=== PATIENT | female | born 1945 | race Caucasian/White ===

== ENCOUNTER → 2016-08-26 | Outpatient (REF) | payer MEDICARE ==
[2016-08-26 10:18] LABS: BASOPHILS % (AUTO) 2 % (0-2); EOSINOPHILS # (AUTO) 0.2 10^3uL; EOSINOPHILS % (AUTO) 2 % (0-4); MEAN CORPUSCULAR HEMOGLOBIN 28.1 PG (26.0-34.0); MEAN CORPUSCULAR HGB CONC 32.3 g/dL (31.0-37.0); MEAN CORPUSCULAR VOLUME 87 FL (80-100); MONOCYTES # (AUTO) 0.8 X10^3; MONOCYTES % (AUTO) 9 % (3-11); NEUTROPHILS # (AUTO) 4.1 X10^3; NEUTROPHILS % (AUTO) 51 % (51-67); PLATELET COUNT 65 10^3uL (150-450)
== END ==
LOC: LAB 10:05
PROVIDERS: ATTEND Internal Medicine
DX: Z51.81 Encounter for therapeutic drug level monitoring (principal); Z79.01 Long term (current) use of anticoagulants; E11.8 Type 2 diabetes mellitus with unspecified complications
CPT/HCPCS: 80048; 83036; 85025; 85610

== ENCOUNTER → 2016-09-09 | Outpatient (REF) | payer MEDICARE | LOC: LAB 09:48 | PROVIDERS: ATTEND Internal Medicine | DX: Z51.81 Encounter for therapeutic drug level monitoring (principal); Z79.01 Long term (current) use of anticoagulants | CPT/HCPCS: 85610 ==

== ENCOUNTER → 2016-09-16 | Outpatient (REF) | payer MEDICARE | LOC: LAB 09:48 | PROVIDERS: ATTEND Internal Medicine | DX: Z51.81 Encounter for therapeutic drug level monitoring (principal); Z79.01 Long term (current) use of anticoagulants | CPT/HCPCS: 85610 ==

== ENCOUNTER → 2016-09-23 | Outpatient (REF) | payer MEDICARE | LOC: LAB 10:52 | PROVIDERS: ATTEND Internal Medicine | DX: Z51.81 Encounter for therapeutic drug level monitoring (principal); Z79.01 Long term (current) use of anticoagulants | CPT/HCPCS: 85610 ==

== ENCOUNTER → 2016-09-30 | Outpatient (REF) | payer MEDICARE | LOC: LAB 10:35 | PROVIDERS: ATTEND Internal Medicine | DX: Z51.81 Encounter for therapeutic drug level monitoring (principal); Z79.01 Long term (current) use of anticoagulants | CPT/HCPCS: 85610 ==

== ENCOUNTER → 2016-10-29 | Outpatient (REF) | payer MEDICARE ==
[~2016-10-29] MED LIST: AC325T PO; ALPR0.25 PO; ATEN-154 PO; ATEN-155 PO; ATEN25PO PO; ATN25T PO; ATOR10TA PO; AZIT250T5 PO; CEPH-507 PO; CHOL100048 PO; COLL30OI TOP; CPR500T PO; DULO60CA58 PO; DULO60CA7; ENOX150D4 SQ; FLDR.1T PO; FLUT15.88 NS; FOLI0.4T2 PO; GBPN600T PO; HUM100IN2 SC; HUM100VI SQ; HUM100VI12 SC; HUM100VI4 SQ; HYDR-3811 PO; HYDR-3881 PO; HYDR2TAB14 PO; IBP200T PO; IBUP200C PO; INSU100I23 SQ; INSU100V19 SQ; INSU100V2 SC; INSU100V2 SQ; INSU100V31 SQ; INSU100V6 SC; INSU100V8 SC; LEVO500T80 PO; LOPE2CAP29 PO; LOSA100T3 PO; LOSA25TA2 PO; LOSA50TA2 PO; LSRT50T PO; METF500T4 PO; METR500T PO; METR500T17 PO; MINE50OI TP; MIRALAX 17 GM P17 GM PO; NITR100C3 PO; NPH SQ; NPH,100I SQ; NPH,100V SC; NPH,100V SQ; ONDA4TAB11 PO; OXYB15TA PO; OXYC1TAB87 PO; POLY17PO6 PO; PRD10T PO; PRD1T PO; PRED1TAB PO; PRED5TAB PO; PSYL1PAC10 PO; SMV20T PO; SPIR1POW3 PO; SPIR25TA PO; SYRI-259 MC; TESTSTRIPS MC; TRAM-25 PO; WALKER; WARF5TAB PO; WARF7.5T PO; WRF2T PO; WRF5T PO; [UNRECOGNIZED DRUG - CODE] SC; [UNRECOGNIZED DRUG - CODE] SQ; [UNRECOGNIZED DRUG - SUPPLY]
[2016-10-29 10:06] LABS: BASOPHILS % (AUTO) 2 % (0-2); EOSINOPHILS # (AUTO) 0.3 10^3uL; EOSINOPHILS % (AUTO) 3 % (0-4); LYMPHOCYTES # (AUTO) 2.9 X10^3; MEAN CORPUSCULAR HEMOGLOBIN 27.8 PG (26.0-34.0); MEAN CORPUSCULAR VOLUME 89 FL (80-100); MEAN PLATELET VOLUME 11.8 FL (6.0-9.5); MONOCYTES # (AUTO) 0.8 X10^3; MONOCYTES % (AUTO) 11 % (3-11); NEUTROPHILS # (AUTO) 3.6 X10^3; NEUTROPHILS % (AUTO) 46 % (51-67); PLATELET COUNT 146 10^3uL (150-450); WHITE BLOOD COUNT 7.85 10^3uL (4.0-11.0)
[2016-10-29 10:17] LABS: ALBUMIN 3.1 g/dL (3.4-5.0); ANION GAP 13.5 MEQ/L (3-15); CALCULATED IONIZED CALCIUM 4.2 mg/dL (3.8-4.6); TOTAL PROTEIN 6.3 g/dL (6.4-8.5)
[2016-10-29 10:40] LABS: MEAN CORPUSCULAR HGB CONC 31.2 g/dL (31.0-37.0)
[2016-10-29 10:49] LABS: ERYTHROCYTE SEDIMENTATION RT* 53 mm/hr (0-23)
== END ==
LOC: LAB 09:55
PROVIDERS: ATTEND Internal Medicine
DX: Z51.81 Encounter for therapeutic drug level monitoring (principal); Z79.01 Long term (current) use of anticoagulants; E11.9 Type 2 diabetes mellitus without complications; I50.42 Chronic combined systolic (congestive) and diastolic (congestive) heart failure; M06.831 Other specified rheumatoid arthritis, right wrist
CPT/HCPCS: 80053; 85025; 85610; 85652; 86140

== ENCOUNTER → 2016-11-06 | Outpatient (REF) | payer MEDICARE | LOC: LAB 09:25 | PROVIDERS: ATTEND Internal Medicine | DX: Z51.81 Encounter for therapeutic drug level monitoring (principal); Z79.01 Long term (current) use of anticoagulants | CPT/HCPCS: 85610 ==

== ENCOUNTER → 2016-11-21 | Outpatient (REF) | payer MEDICARE | LOC: LAB 10:05 | PROVIDERS: ATTEND Internal Medicine | DX: Z51.81 Encounter for therapeutic drug level monitoring (principal); Z79.01 Long term (current) use of anticoagulants; E11.69 Type 2 diabetes mellitus with other specified complication | CPT/HCPCS: 83036; 85610 ==

== ENCOUNTER → 2016-12-05 | Outpatient (REF) | payer MEDICARE | LOC: LAB 09:56 | PROVIDERS: ATTEND Internal Medicine | DX: Z51.81 Encounter for therapeutic drug level monitoring (principal); Z79.01 Long term (current) use of anticoagulants | CPT/HCPCS: 85610 ==

== ENCOUNTER → 2016-12-19 | Outpatient (REF) | payer MEDICARE | LOC: LAB 13:53 | PROVIDERS: ATTEND Internal Medicine | DX: Z51.81 Encounter for therapeutic drug level monitoring (principal); Z79.01 Long term (current) use of anticoagulants | CPT/HCPCS: 85610 ==